=== PATIENT | female | born 1955 | race American Indian/Alaskan Native ===

== ENCOUNTER 2016-07-14 08:36 | Emergency (ER) | payer OTHER ==
[2016-07-14] MEDS ORDERED: NORCO 5/325 PO ONE (13:20)
--- NOTE | 2016-07-14 13:25 | Emergency Department Report ---
ED Extremity Problem HPI - General Chief complaint: Extremity Problem,Nontraumatic Stated complaint: FOOT PAIN Time Seen by Provider: 07/14/16 13:14 Source: patient Mode of arrival: Ambulatory Limitations: No Limitations - History of Present Illness Initial comments: PT states she was seen 1 month ago for foot pain and dx with arthritis. PT states her pain has progressively gotten worse. PT states her pain is worse with ambulating. PT states she has a hx of bunions and has had bunion surgery on L foot. PT states she was taking the RX medications and castillo wrapping her L foot, but no relief. MD Complaint: extremity pain Onset/Timin -: Gradual, month(s) Location: left, toe History of Same: Yes (since September of 2015 ) Severity scale (0 -10): 10 Quality: sharp, constant Consistency: constant Worsens with: weight bearing, walking, palpation Associated Symptoms: denies other symptoms. denies: chest pain, fever - Related Data Previous Rx's Medication Instructions Recorded Last Taken Type Naproxen [Naproxen TAB] 250 mg PO BID PRN #30 tablet 06/07/16 Unknown Rx Terbinafine HCl [Lamisil At] 12 gm TP BID #1 cream..g. 06/07/16 Unknown Rx Allergies Allergy/AdvReac Type Severity Reaction Status Date / Time No Known Allergies Allergy Unverified 06/07/16 07:17 ED Review of Systems ROS: Stated complaint: FOOT PAIN Other details as noted in HPI Constitutional: denies: chills, fever Cardiovascular: other (pt states she was told her bp has been elevated but denies hx of htn ). denies: chest pain Gastrointestinal: denies: nausea, vomiting Musculoskeletal: as per HPI Skin: change in color ED Past Medical Hx - Past Medical History Previous Medical History?: Yes Hx Hypertension: No Additional medical history: osteoarthritis - Surgical History Past Surgical History?: Yes Additional Surgical History: feet / dental/ ectopic/ tubal ligation - Social History Smoking Status: Former Smoker Substance Use Type: Alcohol, Marijuana - Medications Home Medications: Home Medications Medication Instructions Recorded Confirmed Last Taken Type Naproxen [Naproxen TAB] 250 mg PO BID PRN #30 tablet 06/07/16 Unknown Rx Terbinafine HCl [Lamisil At] 12 gm TP BID #1 cream..g. 06/07/16 Unknown Rx ED Physical Exam - General Limitations: No Limitations General appearance: alert, in no apparent distress - Head Head exam: Present: atraumatic, normocephalic - Eye Eye exam: Present: normal appearance. Absent: conjunctival injection - ENT ENT exam: Present: normal exam - Neck Neck exam: Present: normal inspection, full ROM - Respiratory Respiratory exam: Present: normal lung sounds bilaterally. Absent: respiratory distress - Cardiovascular Cardiovascular Exam: Present: regular rate, normal rhythm, normal heart sounds - Extremities Exam Extremities exam: Present: tenderness, normal capillary refill, joint swelling. Absent: pedal edema - Expanded Lower Extremity Exam Left Lower Leg exam: Absent: tenderness Foot/Toe exam: Present: tenderness, swelling (swelling and tenderness to L MTP joint ). Absent: ecchymosis, tenderness at base of 5th metatarsal - Back Exam Back exam: Present: normal inspection, full ROM. Absent: tenderness, CVA tenderness (R), CVA tenderness (L) - Neurological Exam Neurological exam: Present: alert, oriented X3 - Psychiatric Psychiatric exam: Present: normal affect, normal mood - Skin Skin exam: Present: warm, dry, intact, erythema (mild, to L MTP joint ) ED Course Vital Signs 07/14/16 07/14/16 08:50 13:52 Temperature 98.2 F Pulse Rate 94 H Respiratory 18 18 Rate Blood Pressure 140/102 O2 Sat by Pulse 98 Oximetry - Reevaluation(s) Reevaluation #1: 07/14/16 13:25 pt aware of plan of care. pt has no questions at this time. Reevaluation #2: 07/14/16 14:54 pt states she is feeling better. PT aware of lab results and dx. PT has no further questions at this time - Pulse Oximetry Interpretation Digit-Finger Initial Pulse Oximetry Readin Actions Taken: none ED Medical Decision Making - Lab Data Result diagrams: 07/14/16 13:54 07/14/16 13:54 - Radiology Data Radiology results: image reviewed interpreted by me: L foot- NAP old appearing irregularity noted to the head of the metarsal which is constant with pt's hx of Bunion surgery - Differential Diagnosis OA, gout Critical care attestation.: If time is entered above; I have spent that time in minutes in the direct care of this critically ill patient, excluding procedure time. ED Disposition Clinical Impression: Elevated blood pressure Acute gout Qualifiers: Gout site: toe Gout etiology: unspecified cause Laterality: left Qualified Code (s): M10.9 - Gout, unspecified Disposition: DISCHARGED TO HOME OR SELFCARE Is pt being admited?: No Does the pt Need Aspirin: No Condition: Stable Instructions: Acute Gouty Arthritis (ED), Low Purine Diet (ED) Additional Instructions: Follow up with PCP in 3-5 days for bp recheck no driving or ETOH after tylenol #3 Referrals: PRIMARY CAREMD [Primary Care Provider] - 3-5 Days Time of Disposition: 15:00
[2016-07-14] MEDS ORDERED: INDOCIN PO ONE (14:00)
[2016-07-14 14:12] LABS: Basophils % (Auto) 0.9 % (0.0-1.8); Eosinophils % (Auto) 0.4 % (0.0-4.3); Hematocrit 39.8 % (30.3-42.9); Hemoglobin 13.2 gm/dl (10.1-14.3); Mean Corpuscular HGB Conc 33 % (30-34); Mean Corpuscular Hemoglobin 29 pg (28-32); Mean Corpuscular Volume 86 fl (79-97); Platelet Count 277 K/mm3 (140-440); Red Blood Count 4.61 M/mm3 (3.65-5.03); Red Cell Distribution Width 13.1 % (13.2-15.2); White Blood Count 10.2 K/mm3 (4.5-11.0)
[2016-07-14 14:24] LABS: Anion Gap 20 mmol/L; BUN/Creatinine Ratio 16.66; Blood Urea Nitrogen 10 mg/dL (7-17); Calcium 9.5 mg/dL (8.4-10.2); Carbon Dioxide 22 mmol/L (22-30); Chloride 98.5 mmol/L (98-107); Glucose 98 mg/dL (65-100); Potassium 3.6 mmol/L (3.6-5.0); Sodium 137 mmol/L (137-145)
[2016-07-14] MEDS ORDERED: COLCRYS PO ONE (15:00)
[2016-07-14 15:13] VITALS: BP 140/100
--- NOTE | 2016-07-15 08:28 | XRay Report ---
Left foot 3 views. Findings: There are no fractures or other acute findings. There is swelling at the first metatarsophalangeal joint with mild joint space narrowing. There are no other significant findings. Impression: Mild arthritic changes at the first MTP joint.
== END 2016-07-14 15:11 | disposition home or self-care (01) ==
LOC: ED 08:36
DX: M10.9 Gout, unspecified (principal); F12.10 Cannabis abuse, uncomplicated; Z87.891 Personal history of nicotine dependence
CPT/HCPCS: 36415; 80048; 84550; 85025; 99284

== ENCOUNTER 2016-08-09 18:57 | Emergency (ER) | payer OTHER ==
--- NOTE | 2016-08-09 21:39 | XRay Report ---
FINAL REPORT PROCEDURE: XR ANKLE 3 LT TECHNIQUE: Left ankle radiographs, AP, lateral, and oblique views. CPT 83777 HISTORY: lateral left ankle pain COMPARISON: No prior studies are available for comparison. FINDINGS: Fracture (s) and/or Dislocation(s): There is a tiny cortical defect of the distal fibula.. Alignment: Normal . Joint space(s): Normal . Soft tissues: There is lateral soft tissue swelling.. Bone mineralization: Normal . Foreign bodies: None . Calcaneal spurring: There is a small posterior calcaneal spur.. IMPRESSION: Cortical chip fracture of the distal fibula with adjacent soft tissue swelling..
[2016-08-09] MEDS ORDERED: NORCO 5/325 PO ONE (22:01)
[2016-08-09] MEDS ORDERED: TORADOL IM ONE (22:01)
[2016-08-09 23:17] VITALS: BP 160/97
--- NOTE | 2016-08-10 04:43 | Emergency Department Report ---
Entered by LASHAE HOLLEY, acting as scribe for AXEL LUNA PA. ED Fall HPI - General Chief Complaint: Fall Stated Complaint: FALL/LT ANKLE INJURY Time Seen by Provider: 08/09/16 20:09 Source: patient Mode of arrival: Ambulatory - History of Present Illness Initial Comments: 60 year old female with a HTN presents to the ED c/o left ankle pain secondary to a fall that occurred yesterday. Patient states that she fell and subsequently twisted her left foot inward secondary to her gout flare of her left big toe. Rates pain as 8/10 in severity and throbbing quality. Denies fever , chills, nausea, vomiting, chest pain, SOB, and abdominal pain. Denies numbness , weakness, paresthesias. Notes that she was previously diagnosed with gout and usually experience gout flare-up once a month. Patient reports gout symptomatic relief post medication prescribed at her last visit and would like same medications prescribed again. Tried Ibuprofen with no relief. NKDA. CEJA Complaint: fall Onset/Timin -: days(s) When Fall Occurred: # days [employer] (1) Fall Witnessed: no Place Fall Occurred: home Loss of Consciousness: none Symptoms Prior to Fall: none Location: other (left ankle) Location - Extremities: Left: Ankle Severity: moderate Severity scale (0 -10): 8 Quality: other (throbbing) Associated Symptoms: denies: headache, neck pain, numbness, weakness, chest paint, shortness of breath, abdominal pain, unable to walk, lightheaded - Related Data Previous Rx's Medication Instructions Recorded Last Taken Type Terbinafine HCl [Lamisil At] 12 gm TP BID #1 cream..g. 06/07/16 Unknown Rx Acetaminophen/Codeine [Tylenol #3] 1 tab PO Q6H PRN #8 tab 07/14/16 Unknown Rx Colchicine 0.6 mg PO DAILY #1 tablet 08/09/16 Unknown Rx HYDROcodone/APAP 5-325 [[place] 1 each PO Q6HR PRN #20 tablet 08/09/16 Unknown Rx 5/325] Indomethacin 50 mg PO Q8H PRN #12 capsule 08/09/16 Unknown Rx Allergies Allergy/AdvReac Type Severity Reaction Status Date / Time No Known Allergies Allergy Unverified 06/07/16 07:17 ED Review of Systems Comment: All other systems reviewed and negative Constitutional: denies: chills, fever, other (tingling) Respiratory: denies: orthopnea, shortness of breath, SOB with exertion, SOB at rest, stridor Cardiovascular: denies: chest pain, dyspnea on exertion, orthopnea Gastrointestinal: denies: abdominal pain, nausea, vomiting Skin: denies: rash Neurological: denies: numbness ED Past Medical Hx - Past Medical History Previous Medical History?: Yes Hx Hypertension: Yes Additional medical history: osteoarthritis - Surgical History Past Surgical History?: Yes Additional Surgical History: feet / dental/ ectopic/ tubal ligation - Social History Smoking Status: Former Smoker Substance Use Type: Alcohol, Marijuana - Medications Home Medications: Home Medications Medication Instructions Recorded Confirmed Last Taken Type Terbinafine HCl [Lamisil At] 12 gm TP BID #1 cream..g. 06/07/16 Unknown Rx Acetaminophen/Codeine [Tylenol #3] 1 tab PO Q6H PRN #8 tab 07/14/16 Unknown Rx Colchicine 0.6 mg PO DAILY #1 tablet 08/09/16 Unknown Rx HYDROcodone/APAP 5-325 [[place] 1 each PO Q6HR PRN #20 tablet 08/09/16 Unknown Rx 5/325] Indomethacin 50 mg PO Q8H PRN #12 capsule 08/09/16 Unknown Rx ED Physical Exam - General Limitations: No Limitations General appearance: alert, in no apparent distress - Head Head exam: Present: atraumatic, normocephalic - Eye Eye exam: Present: normal appearance - ENT ENT exam: Present: normal exam, mucous membranes moist - Neck Neck exam: Present: normal inspection, full ROM. Absent: tenderness, lymphadenopathy - Respiratory Respiratory exam: Present: normal lung sounds bilaterally. Absent: respiratory distress, wheezes, rales, rhonchi, stridor - Cardiovascular Cardiovascular Exam: Present: regular rate, normal rhythm. Absent: systolic murmur, diastolic murmur, rubs, gallop - GI/Abdominal GI/Abdominal exam: Present: soft, normal bowel sounds. Absent: distended, tenderness, guarding, rebound, rigid - Extremities Exam Extremities exam: Present: normal inspection, tenderness (left ankle and left big toe). Absent: full ROM (limited dorsiflexion and plantar flexion motion due to left ankle pain) - Expanded Lower Extremity Exam Left Hip exam: Present: normal inspection, full ROM. Absent: tenderness Upper Leg exam: Present: normal inspection, full ROM Knee exam: Present: normal inspection, full ROM. Absent: tenderness Lower Leg exam: Present: normal inspection, full ROM Ankle exam: Present: normal inspection, tenderness (medial aspect of left ankle) . Absent: full ROM (limited dorsiflexion and plantar flexion motion), swelling , ecchymosis, deformity Foot/Toe exam: Present: normal inspection, tenderness (proximal aspect of left big toe), swelling (minimal), erythema (Left big toe: erythematous and warm to touch ). Absent: full ROM (limited dorsiflexion and plantar flexion motion), abrasion, laceration, ecchymosis, dislocation Neuro vascular tendon exam: Present: no vascular compromise. Absent: pulse deficit, abnormal cap refill, motor deficit, sensory deficit, tendon deficit, pallor Gait: Positive: observed and limited by pain - Back Exam Back exam: Present: normal inspection, full ROM - Neurological Exam Neurological exam: Present: alert, oriented X3 - Psychiatric Psychiatric exam: Present: normal affect, normal mood - Skin Skin exam: Present: warm, dry, intact ED Course Vital Signs 08/09/16 08/09/16 19:20 23:15 Temperature 98.0 F 98.0 F Pulse Rate 87 80 Respiratory 20 18 Rate Blood Pressure 158/112 Blood Pressure 160/97 [Right] O2 Sat by Pulse 100 100 Oximetry ED Medical Decision Making - Lab Data Vital Signs 08/09/16 08/09/16 19:20 23:15 Temperature 98.0 F 98.0 F Pulse Rate 87 80 Respiratory 20 18 Rate Blood Pressure 158/112 Blood Pressure 160/97 [Right] O2 Sat by Pulse 100 100 Oximetry - Radiology Data Radiology results: report reviewed PROCEDURE: XR ANKLE 3 LT COMPARISON: No prior studies are available for comparison. FINDINGS: Fracture (s) and/or Dislocation(s): There is a tiny cortical defect of the distal fibula.. Alignment: Normal . Joint space(s): Normal . Soft tissues: There is lateral soft tissue swelling.. Bone mineralization: Normal . Foreign bodies: None . Calcaneal spurring: There is a small posterior calcaneal spur.. IMPRESSION: Cortical chip fracture of the distal fibula with adjacent soft tissue swelling. - Medical Decision Making 60-year-old female presents today with a Flare to her left big toe and left ankle pain post fall. Her x-ray results reveal a cortical chip fracture of the distal fibula with adjacent soft tissue swelling. Patient reports pain control post medication. Her left ankle has been put in a posterior ankle splint. Referral for orthopedic has been provided. Patient is in no acute distress at this time. She will be discharged home and is encouraged to follow up with a primary care provider. She will be sent home on [place], indomethacin, colchicine and is encouraged to return to the emergency room for any worsening symptoms. ED Disposition Clinical Impression: Fracture of distal fibula, Gout attack Disposition: DISCHARGED TO HOME OR SELFCARE Is pt being admited?: No Does the pt Need Aspirin: No Condition: Stable Instructions: Ankle Fracture (ED), Acute Gouty Arthritis (ED) Additional Instructions: Follow-up with primary care provider and orthopedic. Return to the emergency department if symptoms worsen. Prescriptions: Colchicine 0.6 mg PO DAILY #1 tablet HYDROcodone/APAP 5-325 [[place] 5/325] 1 each PO Q6HR PRN #20 tablet PRN Reason: Pain Indomethacin 50 mg PO Q8H PRN #12 capsule PRN Reason: Pain Referrals: PRIMARY CAREMD [Primary Care Provider] - 3-5 Days LIZA CASTELLANOS MD [Staff Physician] - 3-5 Days Forms: Work/School Release Form(ED) Time of Disposition: 22:11 This documentation as recorded by the KISHAN patel JASMINE,accurately reflects the service I personally performed and the decisions made by JEREMY mas NATASHA, PA.
== END 2016-08-09 23:25 | disposition home or self-care (01) ==
LOC: ED 18:57
DX: S82.832A Other fracture of upper and lower end of left fibula, initial encounter for closed fracture (principal); I10 Essential (primary) hypertension; M19.90 Unspecified osteoarthritis, unspecified site; F14.10 Cocaine abuse, uncomplicated; Z98.51 Tubal ligation status; Z87.891 Personal history of nicotine dependence; W18.39XA Other fall on same level, initial encounter; Y93.89 Activity, other specified; Y99.8 Other external cause status; Y92.098 Other place in other non-institutional residence as the place of occurrence of the external cause
CPT/HCPCS: 29515; 73610; 96372; 99284; J1885

== ENCOUNTER 2016-10-14 09:22 | Emergency (ER) | payer OTHER ==
[2016-10-14 09:30] VITALS: BP 133/96
--- NOTE | 2016-10-14 10:42 | Emergency Department Report ---
ED ENT HPI - General Chief complaint: Earache Stated complaint: LT EAR PAIN Time Seen by Provider: 10/14/16 10:29 Source: patient Mode of arrival: Ambulatory Limitations: No Limitations - History of Present Illness Initial comments: Patient comes into the ER today with complaints of left ear pain for the past 2 days. Patient denies any injury, fever, nasal congestion, sore throat. Patient states that it seemed to come on all of a sudden with pressure and decreased hearing. Patient has tried multiple [id number] remedies for flushing her ear out without any success. MD complaint: ear pain - Related Data Previous Rx's Medication Instructions Recorded Last Taken Type Terbinafine HCl [Lamisil At] 12 gm TP BID #1 cream..g. 06/07/16 Unknown Rx Acetaminophen/Codeine [Tylenol #3] 1 tab PO Q6H PRN #8 tab 07/14/16 Unknown Rx Colchicine 0.6 mg PO DAILY #1 tablet 08/09/16 Unknown Rx HYDROcodone/APAP 5-325 [[place] 1 each PO Q6HR PRN #20 tablet 08/09/16 Unknown Rx 5/325] Indomethacin 50 mg PO Q8H PRN #12 capsule 08/09/16 Unknown Rx Allergies Allergy/AdvReac Type Severity Reaction Status Date / Time No Known Allergies Allergy Unverified 06/07/16 07:17 ED Dental HPI - General Chief complaint: Earache Stated complaint: LT EAR PAIN Time Seen by Provider: 10/14/16 10:29 Source: patient Mode of arrival: Ambulatory Limitations: No Limitations - Related Data Previous Rx's Medication Instructions Recorded Last Taken Type Terbinafine HCl [Lamisil At] 12 gm TP BID #1 cream..g. 06/07/16 Unknown Rx Acetaminophen/Codeine [Tylenol #3] 1 tab PO Q6H PRN #8 tab 07/14/16 Unknown Rx Colchicine 0.6 mg PO DAILY #1 tablet 08/09/16 Unknown Rx HYDROcodone/APAP 5-325 [[place] 1 each PO Q6HR PRN #20 tablet 08/09/16 Unknown Rx 5/325] Indomethacin 50 mg PO Q8H PRN #12 capsule 08/09/16 Unknown Rx Allergies Allergy/AdvReac Type Severity Reaction Status Date / Time No Known Allergies Allergy Unverified 06/07/16 07:17 ED Review of Systems ROS: Stated complaint: LT EAR PAIN Other details as noted in HPI Constitutional: denies: chills, fever Eyes: denies: eye pain, eye discharge, vision change ENT: ear pain, hearing loss. denies: throat pain, dental pain, epistaxis, congestion Respiratory: denies: cough, shortness of breath, wheezing Cardiovascular: denies: chest pain, palpitations Endocrine: no symptoms reported Gastrointestinal: denies: abdominal pain, nausea, diarrhea Genitourinary: denies: urgency, dysuria, discharge Musculoskeletal: denies: back pain, joint swelling, arthralgia Skin: denies: rash, lesions Neurological: denies: headache, weakness, paresthesias Psychiatric: denies: anxiety, depression Hematological/Lymphatic: denies: easy bleeding, easy bruising ED Past Medical Hx - Past Medical History Previous Medical History?: Yes Hx Hypertension: Yes Additional medical history: osteoarthritis - Surgical History Past Surgical History?: Yes Additional Surgical History: feet / dental/ ectopic/ tubal ligation - Social History Smoking Status: Current Every Day Smoker Substance Use Type: Alcohol - Medications Home Medications: Home Medications Medication Instructions Recorded Confirmed Last Taken Type Terbinafine HCl [Lamisil At] 12 gm TP BID #1 cream..g. 06/07/16 Unknown Rx Acetaminophen/Codeine [Tylenol #3] 1 tab PO Q6H PRN #8 tab 07/14/16 Unknown Rx Colchicine 0.6 mg PO DAILY #1 tablet 08/09/16 Unknown Rx HYDROcodone/APAP 5-325 [[place] 1 each PO Q6HR PRN #20 tablet 08/09/16 Unknown Rx 5/325] Indomethacin 50 mg PO Q8H PRN #12 capsule 08/09/16 Unknown Rx ED Physical Exam - General Limitations: No Limitations General appearance: alert, in no apparent distress - Head Head exam: Present: atraumatic, normocephalic - Eye Eye exam: Present: normal appearance. Absent: conjunctival injection - ENT ENT exam: Present: normal orophraynx, mucous membranes moist, other (left external auditory canal occluded with cerumen. No visualization of the left TM. ) - Neck Neck exam: Present: normal inspection, full ROM. Absent: tenderness, lymphadenopathy - Respiratory Respiratory exam: Present: normal lung sounds bilaterally. Absent: respiratory distress, decreased breath sounds - Cardiovascular Cardiovascular Exam: Present: regular rate, normal rhythm, normal heart sounds. Absent: systolic murmur, diastolic murmur, rubs, gallop - GI/Abdominal GI/Abdominal exam: Present: soft, normal bowel sounds - Extremities Exam Extremities exam: Present: normal inspection - Back Exam Back exam: Present: normal inspection - Neurological Exam Neurological exam: Present: alert, oriented X3 - Psychiatric Psychiatric exam: Present: normal affect, normal mood - Skin Skin exam: Present: warm, dry, intact, normal color. Absent: rash ED Course Vital Signs 10/14/16 09:26 Temperature 98.1 F Pulse Rate 104 H Respiratory 16 Rate Blood Pressure 133/96 O2 Sat by Pulse 98 Oximetry - Ear Wax Removal Left Ear Ear Canal Irrigated by: other (PA) Ear Canal Irrigated With: warm saline with H2O2 using syringe/angiocath Results: Re-examined: cerumen removed completel TM Visible: TM(s) intact, normal appe Ear Canal: atraumatic Patient Tolerated Procedure: well, no complications Complications: no problems Additional Comments: Removed large amount of hard, impacted wax from left EAC ED Medical Decision Making - Medical Decision Making Neurologic left ear performed here in the ER. Remove a large amount of hard Wax in left ear canal. Patient tolerated procedure very well without occasions. Patient states that she is symptomatically cured. Critical care attestation.: If time is entered above; I have spent that time in minutes in the direct care of this critically ill patient, excluding procedure time. ED Disposition Clinical Impression: Impacted cerumen of left ear, Left ear pain Disposition: TO HOME OR SELFCARE Is pt being admited?: No Does the pt Need Aspirin: No Condition: Good Instructions: Cerumen Impaction (ED) Referrals: [facility] MD [Other] - 3-5 Days Time of Disposition: 11:44
[2016-10-14] MEDS ORDERED: HYDROGEN PEROXIDE TP ONE (11:24)
[2016-10-14] MEDS ORDERED: HYDROGEN PEROXIDE ONE (11:24)
== END 2016-10-14 11:51 | disposition home or self-care (01) ==
LOC: ED 09:22
DX: H61.22 Impacted cerumen, left ear (principal); H92.02 Otalgia, left ear; I10 Essential (primary) hypertension; F17.200 Nicotine dependence, unspecified, uncomplicated
CPT/HCPCS: 99282

== ENCOUNTER 2016-11-12 09:22 | Emergency (ER) | payer OTHER ==
[2016-11-12 09:32] VITALS: BP 134/98
[2016-11-12] MEDS ORDERED: NORCO 5/325 PO ONE (12:03)
--- NOTE | 2016-11-12 12:04 | Emergency Department Report ---
ED Lower Extremity HPI - General Chief Complaint: Pain General Stated Complaint: PAIN IN R LEG/ R SHOULDER/HIPS Time Seen by Provider: 11/12/16 11:05 Source: patient Mode of arrival: Ambulatory Limitations: No Limitations - History of Present Illness MD Complaint: other (chronic right shoulder and knee pain) - Related Data Previous Rx's Medication Instructions Recorded Last Taken Type Terbinafine HCl [Lamisil At] 12 gm TP BID #1 cream..g. 06/07/16 Unknown Rx Acetaminophen/Codeine [Tylenol #3] 1 tab PO Q6H PRN #8 tab 07/14/16 Unknown Rx Colchicine 0.6 mg PO DAILY #1 tablet 08/09/16 Unknown Rx HYDROcodone/APAP 5-325 [[place] 1 each PO Q6HR PRN #20 tablet 08/09/16 Unknown Rx 5/325] Indomethacin 50 mg PO Q8H PRN #12 capsule 08/09/16 Unknown Rx Allergies Allergy/AdvReac Type Severity Reaction Status Date / Time No Known Allergies Allergy Verified 11/12/16 09:26 ED Review of Systems ROS: Stated complaint: PAIN IN R LEG/ R SHOULDER/HIPS Other details as noted in HPI ED Past Medical Hx - Past Medical History Previous Medical History?: Yes Hx Hypertension: Yes Additional medical history: osteoarthritis - Surgical History Past Surgical History?: Yes Additional Surgical History: feet / dental/ ectopic/ tubal ligation - Social History Smoking Status: Never Smoker Substance Use Type: Alcohol - Medications Home Medications: Home Medications Medication Instructions Recorded Confirmed Last Taken Type Terbinafine HCl [Lamisil At] 12 gm TP BID #1 cream..g. 06/07/16 Unknown Rx Acetaminophen/Codeine [Tylenol #3] 1 tab PO Q6H PRN #8 tab 07/14/16 Unknown Rx Colchicine 0.6 mg PO DAILY #1 tablet 08/09/16 Unknown Rx HYDROcodone/APAP 5-325 [[place] 1 each PO Q6HR PRN #20 tablet 08/09/16 Unknown Rx 5/325] Indomethacin 50 mg PO Q8H PRN #12 capsule 08/09/16 Unknown Rx ED Physical Exam - General Limitations: No Limitations ED Course Vital Signs 11/12/16 09:26 Temperature 98.6 F Pulse Rate 78 Respiratory 20 Rate Blood Pressure 134/98 O2 Sat by Pulse 100 Oximetry Critical care attestation.: If time is entered above; I have spent that time in minutes in the direct care of this critically ill patient, excluding procedure time. ED Disposition Condition: Stable Referrals: JERALD SOTO MD [Primary Care Provider] - 3-5 Days
--- NOTE | 2016-11-12 12:52 | XRay Report ---
RIGHT KNEE, 2 views: History: Right knee pain. Moderate joint space narrowing in the medial compartment is noted. There is no evidence for fracture, bone lesion or large joint effusion. Normal bone mineralization. IMPRESSION: Osteoarthritis. No acute process.
--- NOTE | 2016-11-12 12:52 | XRay Report ---
RIGHT SHOULDER: History: Right shoulder pain. Routine views demonstrate normal bony and soft tissue structures with normal joint alignment of the shoulder. Age-appropriate osteoarthritic changes are noted. IMPRESSION: Minimal osteoarthritic changes.
--- NOTE | 2016-11-13 08:00 | Vascular Lab Report ---
Right Lower Extremity Venous Duplex Study: Reason for Exam: Swelling of the right lower extremity. Comments on the Right: All veins visualized are freely compressible without evidence of internal echogenicity. Flow is spontaneous and phasic throughout. No evidence of acute or chronic thrombus is seen in any of the vessels visualized. Comments on the Left: A limited duplex study was done of the proximal veins of the left lower extremity. All veins visualized are freely compressible without evidence of internal echogenicity. Flow is spontaneous and phasic throughout. No evidence of acute or chronic thrombus is seen in any of the vessels visualized. Impression: No evidence of acute or chronic deep venous thrombosis in the right lower extremity.
== END 2016-11-12 13:21 | disposition home or self-care (01) ==
LOC: ED 09:22
DX: M25.511 Pain in right shoulder (principal); M25.561 Pain in right knee; I10 Essential (primary) hypertension; M19.90 Unspecified osteoarthritis, unspecified site; Z98.51 Tubal ligation status

== ENCOUNTER 2016-12-18 09:49 | Emergency (ER) | payer OTHER ==
[2016-12-18 10:03] VITALS: BP 156/106
[2016-12-18 14:01] LABS: Bilirubin,Urine NEG (Negative); Blood,Urine SM (Negative); Ketones,Urine NEG (Negative); Leukocyte Esterase,Urine TR (Negative); Mucus,Urine FEW /HPF; Nitrite,Urine NEG (Negative); Protein,Urine <15 mg/dL mg/dL (Negative); RBC,Urine < 1.0 /HPF (0.0-6.0); Urobilinogen,Urine < 2.0 mg/dL (<2.0)
[2016-12-18] MEDS ORDERED: FLEXERIL PO ONE (14:14)
[2016-12-18] MEDS ORDERED: NORCO 5/325 PO ONE (14:14)
--- NOTE | 2016-12-18 15:24 | Emergency Department Report ---
Entered by LASHAE HOLLEY, acting as scribe for LUX DALY PA. ED Back Pain/Injury HPI - General Chief Complaint: Back Pain/Injury Stated Complaint: SOB/BILAT HIP PAIN Time Seen by Provider: 12/18/16 13:27 Source: patient, family Limitations: No Limitations - History of Present Illness Initial Comments: 61 y/o female with a PMHx of HTN, osteoarthritis, and gout presents to the ED c/ o an acute episode of chronic bilateral low back pain that began 1 month ago, worsening yesterday. Patient states her pain was exacerbated after working in the yard yesterday. Rates pain a 8/10 in severity, which she describes as aching and tight quality. Aggravated with movement and walking, and alleviated with immobilization. Denies incontinence, dysuria, urinary urgency and frequency , fever, chills, abdominal pain, nausea,sob,cp vomiting, numbness, and tingling. Patient states she previously had X-rays taken of her back, which showed arthritic changes. Took Naproxen with no relief. It was stated in triage note that patient complaints with shortness of breath she is not having any shortness of breath or hip pain her pain is located in her lumbar area which radiated down to her buttocks NKDA. MD Complaint: back pain, back injury Onset/Timin -: days(s) Similar Symptoms Previously: Yes Place: home Radiation: none Severity: severe Severity scale (0 -10): 8 Quality: aching Consistency: constant Improves With: immobilization Worsens With: movement, walking Context: turning/twisting, bending, other (yard work) Associated Symptoms: denies other symptoms. denies: confusion, weakness, chest pain, numbness, difficulty walking, cough, difficulty urinating, diaphoresis, incontinence, fever/chills, constipation, headaches, abdominal pain, loss of appetite, malaise, nausea/vomiting, rash, seizure, shortness of breath, syncope Treatments Prior to Arrival: other medications (Naproxen) - Related Data Previous Rx's Medication Instructions Recorded Last Taken Type Terbinafine HCl [Lamisil At] 12 gm TP BID #1 cream..g. 06/07/16 Unknown Rx Acetaminophen/Codeine [Tylenol #3] 1 tab PO Q6H PRN #8 tab 07/14/16 Unknown Rx Colchicine 0.6 mg PO DAILY #1 tablet 08/09/16 Unknown Rx HYDROcodone/APAP 5-325 [[place] 1 each PO Q6HR PRN #20 tablet 08/09/16 Unknown Rx 5/325] Indomethacin 50 mg PO Q8H PRN #12 capsule 08/09/16 Unknown Rx Naproxen [Naprosyn TAB] 375 mg PO BID PRN #30 tablet 11/12/16 Unknown Rx traMADol [Ultram 50 MG tab] 50 mg PO Q6HR PRN #15 tablet 12/18/16 Unknown Rx Allergies Allergy/AdvReac Type Severity Reaction Status Date / Time No Known Allergies Allergy Verified 11/12/16 09:26 ED Review of Systems Comment: All other systems reviewed and negative Constitutional: denies: chills, fever Eyes: denies: eye pain, eye discharge, vision change ENT: denies: ear pain, throat pain Respiratory: denies: cough, orthopnea, shortness of breath, SOB with exertion, SOB at rest, stridor, wheezing Cardiovascular: denies: chest pain, palpitations, dyspnea on exertion, orthopnea , edema, syncope, paroxysmal nocturnal dyspnea Endocrine: no symptoms reported Gastrointestinal: denies: abdominal pain, nausea, vomiting, diarrhea Genitourinary: denies: urgency, dysuria, discharge Musculoskeletal: back pain (low back), arthralgia (bilateral hip pain). denies : joint swelling, myalgia Skin: denies: rash, lesions Neurological: denies: headache, weakness, numbness, paresthesias, confusion, vertigo Psychiatric: denies: anxiety, depression Hematological/Lymphatic: denies: easy bleeding, easy bruising ED Past Medical Hx - Past Medical History Previous Medical History?: Yes Hx Hypertension: Yes Additional medical history: osteoarthritis, gout - Surgical History Past Surgical History?: Yes Additional Surgical History: feet / dental/ ectopic/ tubal ligation - Family History Family history: no significant - Social History Smoking Status: Never Smoker Substance Use Type: Alcohol, Marijuana - Medications Home Medications: Home Medications Medication Instructions Recorded Confirmed Last Taken Type Terbinafine HCl [Lamisil At] 12 gm TP BID #1 cream..g. 06/07/16 Unknown Rx Acetaminophen/Codeine [Tylenol #3] 1 tab PO Q6H PRN #8 tab 07/14/16 Unknown Rx Colchicine 0.6 mg PO DAILY #1 tablet 08/09/16 Unknown Rx HYDROcodone/APAP 5-325 [[place] 1 each PO Q6HR PRN #20 tablet 08/09/16 Unknown Rx 5/325] Indomethacin 50 mg PO Q8H PRN #12 capsule 08/09/16 Unknown Rx Naproxen [Naprosyn TAB] 375 mg PO BID PRN #30 tablet 11/12/16 Unknown Rx traMADol [Ultram 50 MG tab] 50 mg PO Q6HR PRN #15 tablet 12/18/16 Unknown Rx ED Physical Exam - General Limitations: No Limitations General appearance: alert, in no apparent distress - Head Head exam: Present: atraumatic, normocephalic, normal inspection - Eye Eye exam: Present: normal appearance, PERRL, EOMI. Absent: periorbital swelling , periorbital tenderness Pupils: Present: normal accommodation - ENT ENT exam: Present: normal exam, normal orophraynx, mucous membranes moist, normal external ear exam - Neck Neck exam: Present: normal inspection, full ROM. Absent: tenderness, meningismus, lymphadenopathy, thyromegaly - Respiratory Respiratory exam: Present: normal lung sounds bilaterally. Absent: respiratory distress, wheezes, rales, rhonchi, stridor, chest wall tenderness, accessory muscle use, decreased breath sounds - Cardiovascular Cardiovascular Exam: Present: regular rate, normal rhythm, normal heart sounds. Absent: systolic murmur, diastolic murmur - GI/Abdominal GI/Abdominal exam: Present: soft, normal bowel sounds. Absent: distended, tenderness, guarding, rebound, rigid - Extremities Exam Extremities exam: Present: normal inspection, full ROM, normal capillary refill. Absent: tenderness, pedal edema, joint swelling, calf tenderness - Expanded Lower Extremity Exam Left Hip exam: Present: normal inspection (bilaterally), full ROM, external rotation , internal rotation, pelvic stability. Absent: tenderness, swelling, abrasion, laceration, ecchymosis, deformity, crepidus, dislocation, erythema, shortening Upper Leg exam: Present: normal inspection (bilaterally), full ROM. Absent: tenderness, swelling, abrasion, laceration, ecchymosis, deformity, crepidus, dislocation, erythema Knee exam: Present: normal inspection (bilaterally), full ROM, full knee extension. Absent: tenderness, swelling, abrasion, laceration, ecchymosis, deformity, crepidus, dislocation, erythema, effusion, pain w/ pronation/ supination, posterior draw sign, pain/laxity with valgus, pain/laxity with varus Lower Leg exam: Present: normal inspection (bilaterally), full ROM. Absent: tenderness, swelling, abrasion, laceration, ecchymosis, deformity, crepidus, dislocation, erythema, palpable cord, Joana's sign Ankle exam: Present: normal inspection (bilaterally), full ROM. Absent: tenderness, swelling, abrasion, laceration, ecchymosis, deformity, crepidus, dislocation, erythema, anterior draw sign Foot/Toe exam: Present: normal inspection (bilaterally), full ROM. Absent: tenderness, swelling, abrasion, laceration, ecchymosis, deformity, crepidus, dislocation, erythema, amputation, puncture wound, foreign body, calcaneal tenderness, tenderness at base of 5th metatarsal, nail avulsion, subungual hematoma Neuro vascular tendon exam: Present: no vascular compromise. Absent: pulse deficit, abnormal cap refill, motor deficit, sensory deficit, tendon deficit, extremity cold to touch, pallor, abnormal 2-point discrimination, decreased fine /light touch, foot drop, peroneal nerve deficit, significant pain with passive ROM of distal joint Gait: Positive: observed and limited by pain - Back Exam Back exam: Present: normal inspection, full ROM. Absent: tenderness, CVA tenderness (R), CVA tenderness (L), muscle spasm, paraspinal tenderness, vertebral tenderness, rash noted - Expanded Back Exam Expanded Back exam: Absent: saddle anesthesia Back exam: Negative Straight Leg Raising: Right, Left - Neurological Exam Neurological exam: Present: alert, oriented X3, abnormal gait (due to bilateral hip and low back pain) - Expanded Neurological Exam Expanded Neurological exam: Absent: innattentive, memory loss-remote event, memory loss- recent event, ataxia, receptive aphasia, tremor, protecting the airway Patient oriented to: Present: person, place, time Speech: Present: fluid speech Cranial nerves: EOM's Intact: Normal, Gag Reflex: Normal, Tongue Deviation: Normal, Nystagmus: Normal, Facial Sensation: Normal Cerebellar function: Romberg: Normal - Psychiatric Psychiatric exam: Present: normal affect, normal mood - Skin Skin exam: Present: warm, dry, intact. Absent: rash ED Course Vital Signs 12/18/16 10:00 Temperature 98 F Pulse Rate 77 Respiratory 16 Rate Blood Pressure 156/106 O2 Sat by Pulse 100 Oximetry bp 152/98 manually - Reevaluation(s) Reevaluation #1: 12/18/16 15:06 Given Flexeril 10 mg by mouth and [place] 5/325 mg 2 tablets by mouth in emergency room. ED Medical Decision Making - Medical Decision Making ED course: Seen here with acute exacerbation of chronic back pain from doing yard work yesterday. She says she has history of arthritis and took naproxen but it didn't help. Patient blood pressure is elevated at 156/106 patient says she takes Norvasc but she only takes it sometimes. She hasn't asymptomatic with elevated blood pressure. Patient given [place] 5/325 2 tablets the emergency room along with Flexeril 10 mg by mouth for lower back pain. Urinalysis negative for infection. Results were relayed to patient and I discussed with her that she needs to follow-up with orthopedic doctor regarding her chronic back pain with radiculopathy bilaterally. Patient instructed that she needs to follow up with her primary care physician and while she is waiting for appointment to keep a log of her blood pressure to take to her primary care visit with her. She voiced understanding. Labs: UA negative for infection she had trace leukocyte Estrace with some blood. I'll send a urine culture Assessment/plan 1. Acute exacerbation of chronic back pain with bilateral lumbar radiculopathy 2. Elevated blood pressure with history of hypertension. Patient she's been Norvasc which she takes sometimes. Manual BP taken prior to discharge and it was at 152/98 3. Noncompliance with medication treatment for hypertension Patient discharged home with prescription for Ultram and to follow up with her primary care physician which she does have 1 and 2-3 days for management of elevated blood pressure. I told her that she needs to keep a log of her blood pressure daily and record and take to her primary care visit for evaluation of elevated blood pressure. I also refer her to Dr. Lee orthopedic doctor regarding chronic back pain ED Disposition Clinical Impression: Acute exacerbation of chronic low back pain, Lumbar radiculopathy, chronic, Elevated blood pressure reading without diagnosis of hypertension Disposition: TO HOME OR SELFCARE Is pt being admited?: No Does the pt Need Aspirin: No Condition: Stable Instructions: Heart Healthy Diet (ED), DASH Eating Plan (ED), Low Sodium Diet ( ED), Hypertension (ED), Chronic Back Pain (ED), Lumbar Radiculopathy (ED) Additional Instructions: keep a log a few blood pressure and take to primary care visit with you for evaluation of elevated blood pressure Take blood pressure medication as ordered by her primary care doctor Follow-up with orthopedic doctor for management of chronic back pain please see healthy heart, diet and low sodium diet info in discharge package Prescriptions: traMADol [Ultram 50 MG tab] 50 mg PO Q6HR PRN #15 tablet PRN Reason: Pain Referrals: PRIMARY CAREMD [Primary Care Provider] - 12/20/16 CAROLINE MACIAS MD [Staff Physician] - 12/24/16 Forms: Work/School Release Form(ED) This documentation as recorded by the KISHAN patel JASMINE,accurately reflects the service I personally performed and the decisions made by me,LUX DALY PA.
== END 2016-12-18 15:43 | disposition home or self-care (01) ==
LOC: ED 09:49
DX: M54.16 Radiculopathy, lumbar region (principal); M54.5 Low back pain; G89.29 Other chronic pain; I10 Essential (primary) hypertension; F12.10 Cannabis abuse, uncomplicated
CPT/HCPCS: 81001; 87086

== ENCOUNTER 2016-12-31 09:37 | Emergency (ER) | payer OTHER ==
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
[2016-12-31 10:41] LABS: Alanine Aminotransferase 37 units/L (7-56); Albumin 4.9 g/dL (3.9-5); Albumin/Globulin Ratio 1.4 %; Alkaline Phosphatase 96 units/L (35-129); Anion Gap 25 mmol/L; Basophils % (Auto) 0.4 % (0.0-1.8); Blood Urea Nitrogen 10 mg/dL (7-17); Calcium 9.8 mg/dL (8.4-10.2); Carbon Dioxide 18 mmol/L (22-30); Chloride 100.1 mmol/L (98-107); Eosinophils % (Auto) 0.7 % (0.0-4.3); Glucose 113 mg/dL (65-100); Hematocrit 43.5 % (30.3-42.9); Hemoglobin 14.4 gm/dl (10.1-14.3); Mean Corpuscular HGB Conc 33 % (30-34); Mean Corpuscular Hemoglobin 29 pg (28-32); Mean Corpuscular Volume 89 fl (79-97); Platelet Count 297 K/mm3 (140-440); Potassium 3.4 mmol/L (3.6-5.0); Red Blood Count 4.91 M/mm3 (3.65-5.03); Red Cell Distribution Width 13.3 % (13.2-15.2); Sodium 140 mmol/L (137-145); Total Protein 8.5 g/dL (6.3-8.2); White Blood Count 6.3 K/mm3 (4.5-11.0)
[2016-12-31 11:30] LABS: Urine Drugs of Abuse Note Disclamer
[2016-12-31 11:46] LABS: Bacteria,Urine 1+ /HPF (Negative); Bilirubin,Urine NEG (Negative); Blood,Urine SM (Negative); Ketones,Urine NEG (Negative); Leukocyte Esterase,Urine NEG (Negative); Mucus,Urine FEW /HPF; Nitrite,Urine NEG (Negative); Protein,Urine <15 mg/dL mg/dL (Negative); Urobilinogen,Urine < 2.0 mg/dL (<2.0)
[2016-12-31 15:33] VITALS: BP 147/107
[2016-12-31] MEDS ORDERED: TYLENOL PO ONE (17:11)
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
== END 2016-12-31 21:04 | disposition home or self-care (01) ==
LOC: ED 09:37
DX: F43.9 Reaction to severe stress, unspecified (principal); G47.00 Insomnia, unspecified; I10 Essential (primary) hypertension; M19.90 Unspecified osteoarthritis, unspecified site
CPT/HCPCS: 36415; 80053; 80307; 81001; 85025; 99284; G0480; 80320

== ENCOUNTER 2017-12-15 09:19 | Emergency (ER) | payer OTHER ==
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
[2017-12-15 11:49] VITALS: BP 141/91
== END 2017-12-15 11:48 | disposition home or self-care (01) ==
LOC: ED 09:19
DX: S16.1XXA Strain of muscle, fascia and tendon at neck level, initial encounter (principal); M54.5 Low back pain; I10 Essential (primary) hypertension; M19.90 Unspecified osteoarthritis, unspecified site; M10.9 Gout, unspecified; Z98.51 Tubal ligation status; V89.2XXA Person injured in unspecified motor-vehicle accident, traffic, initial encounter; Y93.89 Activity, other specified; Y92.89 Other specified places as the place of occurrence of the external cause; Y99.8 Other external cause status
CPT/HCPCS: 99282